=== PATIENT | female | born 1950 | race Caucasian/White ===

== ENCOUNTER 2017-08-30 10:17 | Day surgery (SDC) | payer MEDICARE ==
[2017-08-26 08:57] VITALS: BMI 30.2
[~2017-08-30 10:17] MED LIST: LACTATED RINGERS 1,000 ML IV SCH; LIDOCAINE 1% 20 ML VIAL (10MG/ML) FOR IV START INTRADERMA PRN; MIDAZOLAM 2 MG/2 ML VIAL IV PRN
[2017-08-30 10:47] VITALS: RESP 16; TEMP 97.3
[2017-08-30] MEDS ORDERED: fentaNYL (PF) 50 MCG/ML 2 ML AMP ONE (11:10)
[2017-08-30] MEDS ORDERED: PROPOFOL 10 MG/ML 20 ML VIAL IV ONE (11:10)
--- NOTE | 2017-08-30 11:16 | P.GSHP ---
History of Present Illness H&P Date: 08/30/17 Chief Complaint: GI bleed, screening colonoscopy This is a 67-year-old female who presents today for colonoscopy. Patient's had a recent hospital admission for GI bleed. She had some form of colitis. Patient states her bleeding is stopped. She has no abdominal pain. Past Medical History Past Medical History: Asthma, Deep Vein Thrombosis (DVT), GI Bleed, Hypertension , Thyroid Disorder Additional Past Medical History / Comment(s): hospitalized 06/2017 with colitis History of Any Multi-Drug Resistant Organisms: None Reported Past Surgical History: Back Surgery, Section, Orthopedic Surgery, Tonsillectomy Additional Past Surgical History / Comment(s): chiari sx, tonsils x2, shoulder, back x2, knee, left foot Past Anesthesia/Blood Transfusion Reactions: No Reported Reaction Smoking Status: Never smoker - Past Family History Mother Family Medical History: No Reported History Medications and Allergies Home Medications Medication Instructions Recorded Confirmed Type Albuterol Inhaler [Ventolin Hfa 1 - 2 puff INHALATION RT-Q6H PRN 08/26/17 History Inhaler] Aspirin [Adult Low Dose Aspirin EC] 162 mg PO DAILY 08/26/17 08/26/17 History Cholecalciferol [Vitamin D3] 1,000 unit PO DAILY 08/26/17 08/26/17 History Cyanocobalamin (Vitamin B-12) 1,000 mcg PO DAILY 08/26/17 08/26/17 History [Vitamin B-12] Levothyroxine Sodium [Synthroid] 25 mcg PO QAM 08/26/17 08/26/17 History Losartan/Hydrochlorothiazide 1 each PO QAM 08/26/17 08/26/17 History [Losartan-Hctz 100-12.5 mg Tab] Mometasone/Formoterol [Dulera 200 2 puff INHALATION QAM 08/26/17 08/26/17 History Mcg/5 Mcg Inhaler] Multivitamins, Thera [Multivitamin 1 tab PO DAILY 08/26/17 08/26/17 History (formulary)] Vits A,C,E/Lutein/Minerals 1 each PO DAILY 08/26/17 08/26/17 History [Ocuvite with Lutein Tablet] Allergies Allergy/AdvReac Type Severity Reaction Status Date / Time latex Allergy Rash/Hives Verified 08/26/17 08:45 allergy shot Allergy Rash/Hives Uncoded 08/26/17 08:45 Surgical - Exam Vital Signs Temp Pulse Resp BP Pulse Ox 97.3 F L 63 16 177/80 98 08/30/17 10:46 08/30/17 10:46 08/30/17 10:46 08/30/17 10:46 08/30/17 10:46 - General well developed - Eyes PERRL - ENT normal pinna - Neck no masses - Respiratory normal expansion - Cardiovascular Rhythm: regular - Abdomen Abdomen: soft, non tender Assessment and Plan Assessment: GI bleed. We'll perform colonoscopy.
--- NOTE | 2017-08-30 11:25 | P.OP ---
Date of Procedure: 08/30/17 Preoperative Diagnosis: Diverticulitis, screening colonoscopy Postoperative Diagnosis: Diverticulosis Procedure(s) Performed: Colonoscopy Anesthesia: MAC Surgeon: Ming Newell Pathology: none sent Condition: stable Disposition: PACU Description of Procedure: The patient's placed on the endoscopy table in the lateral position. She received IV sedation. Digital rectal exam was performed which revealed no abnormalities. Flexible colonoscope was then placed the patient's anus and passed throughout the entire colon. The ileocecal valve was visualized. The cecum, ascending and transverse colon appeared normal. In the descending and sigmoid colon there is moderate diverticular changes. There is no evidence of diverticulitis. The scope was then brought back into the rectum and this appeared normal. Scope was withdrawn for patient.
[2017-08-30 11:55] VITALS: BP 144/64; PULSE 60
== END 2017-08-30 12:10 | disposition home or self-care (01) ==
LOC: ORWHC2ENDO 10:17
PROVIDERS: ATTEND Surgery
DX: Z12.11 Encounter for screening for malignant neoplasm of colon (principal); K57.30 Diverticulosis of large intestine without perforation or abscess without bleeding; J45.909 Unspecified asthma, uncomplicated; I10 Essential (primary) hypertension; E07.9 Disorder of thyroid, unspecified; Z79.82 Long term (current) use of aspirin; Z79.899 Other long term (current) drug therapy; Z88.8 Allergy status to other drugs, medicaments and biological substances; Z86.718 Personal history of other venous thrombosis and embolism; Z91.040 Latex allergy status; E78.5 Hyperlipidemia, unspecified; Z87.19 Personal history of other diseases of the digestive system
CPT/HCPCS: J3010; J2704; G0121

== ENCOUNTER → 2017-10-29 | Outpatient (CLI) | payer MEDICARE ==
--- NOTE | 2017-10-29 11:03 | MM ---
Reason for exam: screening (asymptomatic). Last mammogram was performed 8 years and 9 months ago. History: Patient is postmenopausal. Family history of breast cancer in maternal aunt. Benign excisional biopsy of the left breast, 1993. Physical Findings: A clinical breast exam by your physician is recommended on an annual basis and results should be correlated with mammographic findings. MG Screening Mammo w CAD Bilateral CC and MLO view(s) were taken. Prior study comparison: January 25, 2009, bilateral digital screening mammogram. March 01, 2003, mammogram, performed at [facility], [place]. There are scattered fibroglandular densities. There is no discrete abnormality. No significant changes when compared with prior studies. ASSESSMENT: Negative, BI-RAD 1 RECOMMENDATION: Routine screening mammogram of both breasts in 1 year.
== END | disposition home or self-care (01) ==
LOC: RADMAMWWP 07:11
PROVIDERS: ATTEND Family Medicine
DX: Z12.31 Encounter for screening mammogram for malignant neoplasm of breast (principal)
CPT/HCPCS: 77067

== ENCOUNTER → 2017-12-09 | Outpatient (CLI) | payer MEDICARE ==
[2017-12-10 04:31] LABS: Gliadin AB IgA, Unit <0.2 U/mL
== END ==
LOC: LABWHC1 16:09
PROVIDERS: ATTEND Internal Medicine Gastroenterology
DX: K58.9 Irritable bowel syndrome, unspecified (principal)
CPT/HCPCS: 36415; 83516

== ENCOUNTER → 2018-01-14 | Outpatient (CLI) | payer MEDICARE ==
--- NOTE | 2018-01-16 14:12 | US ---
EXAMINATION TYPE: US carotid duplex BILAT DATE OF EXAM: 01/14/2018 COMPARISON: NONE CLINICAL HISTORY: I10 Hypertension, H53.9 vision changes. EXAM MEASUREMENTS: RIGHT: Peak Systolic Velocity (PSV) cm/sec ----- Right CCA: 72.1 ----- Right ICA: 241.4 ----- Right ECA: 115.7 ICA/CCA ratio: 3.3 RIGHT: End Diastole cm/sec ----- Right CCA: 13.8 ----- Right ICA: 57.4 ----- Right ECA: 0.0 LEFT: Peak Systolic Velocity (PSV) cm/sec ----- Left CCA: 74.3 ----- Left ICA: 139.3 ----- Left ECA: 130.2 ICA/CCA ratio: 1.9 LEFT: End Diastole cm/sec ----- Left CCA: 19.3 ----- Left ICA: 39.7 ----- Left ECA: 26.8 VERTEBRALS (direction of flow): Right Vertebral: Antegrade Left Vertebral: Antegrade Rhythm: Normal extensive shadowing plaque bilaterally. Elevated ICA velocities in right ICA causing elevated ratio. Grayscale, color Doppler, spectral Doppler imaging performed of the carotid arteries. Waveform analys is shows hemodynamic significant stenosis of the proximal internal carotid artery on the right greate r than left. IMPRESSION: Hemodynamic significant stenosis of the proximal internal carotid artery on the right gr eater than left corresponding to [id number]% diameter reduction by Doppler criteria, an indir ect measurement of carotid stenosis, consider carotid CTA Criteria for Assigning % of Stenosis / Diameter reduction (Estimation based on the indirect measurements of the internal carotid artery velocities (ICA PSV). 1. Normal (no stenosis)=ICA PSV < 125 cm/s: ratio < 2.0: ICA EDV<40 cm/s. 2. Less than 50% stenosis=ICA PSV < 125 cm/s: ratio < 2.0: ICA EDV<40 cm/s. 3. 50 to 69% stenosis=ICA PSV of 125 to 230 cm/s: ration 2.0 ? 4.0: ICA EDV 40-100 cm/s. 4. Greater than 70% stenosis to near occlusion= ICA PSV > 230 cm/s: ratio > 4.0: ICA EDV > 100 cm/s. 5. Near occlusion= ICA PSV velocities may be low or undetectable: variable ratio and ICA EDV. 6. Total occlusion=unable to detect flow.
== END | disposition home or self-care (01) ==
LOC: RADUSWWP 16:51
PROVIDERS: ATTEND Family Medicine
DX: I65.23 Occlusion and stenosis of bilateral carotid arteries (principal); I10 Essential (primary) hypertension
CPT/HCPCS: 93880

== ENCOUNTER → 2018-08-26 | Outpatient (CLI) | payer MEDICARE ==
--- NOTE | 2018-08-26 11:47 | P.STRESS ---
- Stress Test Note Stress Test Results/Findings: Exam Performed: stress echo exercise with con Exam Date: 08/26/18 Reason for Exam: CHEST PAIN Height: 5 ft 1 in Weight: 74.843 kg Protocol: IRASEMA Stage: 3 Duration of Exercise: 7:00 Resting Heart Rate: 70 Resting Blood Pressure: 131/40 Maximum Achieved Heart Rate: 129 Maximum Achieved Blood Pressure: 194/38 85% PMHR: 128 100% PMHR: 151 METS: 8.5 Technologist Comment: Stress Test Results/Findings: This is a 68-year-old female with history of hypertension being evaluated for symptoms of chest pain. Stress data: Baseline EKG showed sinus rhythm with normal MN interval and QRS duration with occasional PVCs. Patient walked on the Irasema protocol for about 7 minutes achieving a maximal rate of 130 with a blood pressure 194/38. EKGs taken during and after the exercise showed about [address] depression in the inferolateral leads which appears to be horizontal. Patient also had one bout of SVT for which she converted back to sinus rhythm spontaneously. Patient complained of shortness of breath but no chest pain. Echo data: Baseline echo images show normal wall motion and thickening. Exercise echo images showed augmentation of wall motion and thickening in all the segments. Final impression: #1. Positive stress test, based on the EKG changes. However, the changes could be related to hypertensive response to the exercise. #2. Brief episode of SVT from which patient converted back to sinus rhythm spontaneously #3 occasional PVCs. #4. Negative stress echo.
--- NOTE | 2018-08-29 14:31 | ECHOS ---
Stress Test Results/Findings: Exam Performed: stress echo exercise with con Exam Date: 08/26/18 Reason for Exam: CHEST PAIN Height: 5 ft 1 in Weight: 74.843 kg Protocol: IRASEMA Stage: 3 Duration of Exercise: 7:00 Resting Heart Rate: 70 Resting Blood Pressure: 131/40 Maximum Achieved Heart Rate: 129 Maximum Achieved Blood Pressure: 194/38 85% PMHR: 128 100% PMHR: 151 METS: 8.5 Technologist Comment: Stress Test Results/Findings: This is a 68-year-old female with history of hypertension being evaluated for symptoms of chest pain. Stress data: Baseline EKG showed sinus rhythm with normal CT interval and QRS duration with occasional PVCs. Patient walked on the Irasema protocol for about 7 minutes achieving a maximal rate of 130 with a blood pressure 194/38. EKGs taken during and after the exercise showed about [address] depression in the inferolateral leads which appears to be horizontal. Patient also had one bout of SVT for which she converted back to sinus rhythm spontaneously. Patient complained of shortness of breath but no chest pain. Echo data: Baseline echo images show normal wall motion and thickening. Exercise echo images showed augmentation of wall motion and thickening in all the segments. Final impression: #1. Positive stress test, based on the EKG changes. However, the changes could be related to hypertensive response to the exercise. #2. Brief episode of SVT from which patient converted back to sinus rhythm spontaneously #3 occasional PVCs. #4. Negative stress echo. JOSELYN
== END | disposition home or self-care (01) ==
LOC: RADNMMAIN 09:01
PROVIDERS: ATTEND Family Medicine
DX: R94.39 Abnormal result of other cardiovascular function study (principal); R07.89 Other chest pain
CPT/HCPCS: C8930; Q9950; 93351

== ENCOUNTER → 2018-10-12 | Outpatient (CLI) | payer MEDICARE ==
--- NOTE | 2018-10-13 08:42 | CT ---
EXAMINATION TYPE: CT angio neck DATE OF EXAM: None COMPARISON: 04/11/2013 HISTORY: dizziness CT DLP: 638.9 mGycm CONTRAST: CTA cervical carotids is performed and with IV Contrast, patient injected with 50cc mL of Isovue 370. Contrast CTA of the cervical carotids was performed 3-D reconstruction imaging obtained at a separate workstation. Right carotid system: Mild plaque is seen of the right common carotid artery. There is mild to moder ate plaque also noted at the carotid bulb. Estimated diameter reduction is approximately 60%. ECA is patent. Right vertebral artery appears unremarkable. Left carotid system: Mild plaque is seen of the left common carotid artery. There is moderate calcif ied plaque also noted at the carotid bulb. Estimated diameter reduction is less than 50%. ECA is p atent. Left vertebral artery appears unremarkable. IMPRESSION: 1. Estimated diameter reduction Right ICA proximally 60% 2. Estimated diameter reduction Left ICA less than 50%
== END | disposition home or self-care (01) ==
LOC: RADCTMAIN 16:32
PROVIDERS: ATTEND Internal Medicine Interventional Cardiology
DX: I65.23 Occlusion and stenosis of bilateral carotid arteries (principal); I10 Essential (primary) hypertension; E78.1 Pure hyperglyceridemia; R06.02 Shortness of breath
CPT/HCPCS: 82565; 84520; 70498; 36415; Q9967

== ENCOUNTER → 2019-06-08 | Outpatient (CLI) | payer MEDICARE ==
--- NOTE | 2019-06-08 11:53 | US ---
EXAMINATION TYPE: US venous doppler duplex LE RT DATE OF EXAM: 06/08/2019 11:47 AM COMPARISON: Prior right lower extremity venous ultrasound January 11, 2015 CLINICAL HISTORY: R60.0 Localized edema. Pain. No swelling. No redness. On baby aspirin. SIDE PERFORMED: Right TECHNIQUE: The lower extremity deep venous system is examined utilizing real time linear array sonog dawson with graded compression, doppler sonography and color-flow sonography. VESSELS IMAGED: External Iliac Vein (EIV) Common Femoral Vein Deep Femoral Vein Greater Saphenous Vein * Femoral Vein Popliteal Vein Small Saphenous Vein * Proximal Calf Veins (* superficial vessels) Right Leg: Negative for DVT Grayscale, color doppler, spectral doppler imaging performed of the deep veins of the right lower ext remity. There is normal flow, compressibility, vascular waveforms. IMPRESSION: No ultrasound evidence for acute DVT in the right lower extremity.
== END | disposition home or self-care (01) ==
LOC: RADUSWWP 11:04
PROVIDERS: ATTEND Family Medicine
DX: R60.0 Localized edema (principal)

== ENCOUNTER → 2019-09-27 | Outpatient (CLI) | payer MEDICARE ==
--- NOTE | 2019-09-27 10:03 | US ---
EXAMINATION TYPE: US venous doppler duplex LE RT DATE OF EXAM: 09/27/2019 9:52 AM COMPARISON: US CLINICAL HISTORY: I80.9 Phlebitis and thrombophlebitis of unspecifie. Pain right medial calf SIDE PERFORMED: Right TECHNIQUE: The lower extremity deep venous system is examined utilizing real time linear array sonog dawson with graded compression, doppler sonography and color-flow sonography. VESSELS IMAGED: External Iliac Vein (EIV) Common Femoral Vein Deep Femoral Vein Greater Saphenous Vein * Femoral Vein Popliteal Vein Small Saphenous Vein * Proximal Calf Veins (* superficial vessels) Right Leg: Negative for DVT, right medial calf scanned in area of pt's pain, no abnormality visualiz ed Results called to Kathie at Dr's office at time of exam IMPRESSION: Negative for DVT
[2019-09-27 11:15] LABS: Basophils # (A) 0.1 k/uL (0-0.2); Basophils % (A) 1 %; Eosinophils # (A) 0.6 k/uL (0-0.7); Eosinophils % (A) 8 %; HCT 44.9 % (34.0-46.0); HGB 14.5 gm/dL (11.4-16.0); Lymphocytes # (A) 1.9 k/uL (1.0-4.8); Lymphocytes % (A) 26 %; MCHC 32.4 g/dL (31.0-37.0); MCV 92.6 fL (80.0-100.0); Mean Platelet Volume 8.2; Monocytes # (A) 0.4 k/uL (0-1.0); Monocytes % (A) 5 %; Neutrophils # (A) 4.2 k/uL (1.3-7.7); Neutrophils % (A) 58 %; Platelet Count 212 k/uL (150-450); RBC 4.85 m/uL (3.80-5.40); RDW 12.7 % (11.5-15.5); WBC 7.2 k/uL (3.8-10.6)
[2019-09-27 11:25] LABS: ALT 16 U/L (4-34); AST 28 U/L (14-36); African American GFR (CKD) >90 (>60 ml/min/1.73 sqM); Albumin 3.8 g/dL (3.5-5.0); Alkaline Phosphatase 40 U/L (38-126); Anion Gap 7 mmol/L; Blood Urea Nitrogen 15 mg/dL (7-17); Calcium 9.2 mg/dL (8.4-10.2); Carbon Dioxide 26 mmol/L (22-30); Chloride 108 mmol/L (98-107); Glucose 114 mg/dL (74-99); Non-African American GFR(CKD) 86 (>60 ml/min/1.73 sqM); Potassium 4.4 mmol/L (3.5-5.1); Sodium 141 mmol/L (137-145); Total Bilirubin 0.5 mg/dL (0.2-1.3); Total Protein 6.5 g/dL (6.3-8.2)
== END | disposition home or self-care (01) ==
LOC: RADUSWWP 09:10
PROVIDERS: ATTEND Family Medicine
DX: I80.9 Phlebitis and thrombophlebitis of unspecified site (principal)
CPT/HCPCS: 80053; 85025

== ENCOUNTER 2020-02-23 16:29 | Emergency (ER) | payer MEDICARE ==
[2020-02-23 16:37] VITALS: BP 159/75; PULSE 70; RESP 20; TEMP 98.5
[2020-02-23] MEDS ORDERED: HYDROcodone/APAP 5-325MG 1 EACH TAB PO STA ×2 (16:39→16:51)
--- NOTE | 2020-02-23 16:58 | ED ---
Lower Extremity Injury HPI - General Chief Complaint: Extremity Injury, Lower Stated Complaint: DVT Time Seen by Provider: 02/23/20 16:39 Source: patient Mode of arrival: wheelchair Limitations: no limitations - History of Present Illness Initial Comments: Patient presents with complaint of left leg DVT. She had a broken foot a couple months ago. She noticed increased swelling in her left leg. Her orthopedic company ordered a duplex of the leg. If found her to have a DVT. Patient has no chest pain or shortness of breath. She has no palpitations. She has no weakness. She has no paresthesias. She has no light is. She has no dizziness. She has no trouble walking. - Related Data Home Medications Medication Instructions Recorded Confirmed Albuterol Inhaler (Mhu) [Ventolin 1 - 2 puff INHALATION RT-Q6H PRN 08/26/17 08/26/17 Hfa Inhaler] Aspirin [Adult Low Dose Aspirin EC] 162 mg PO DAILY 08/26/17 08/26/17 Cholecalciferol [Vitamin D3] 1,000 unit PO DAILY 08/26/17 08/26/17 Cyanocobalamin (Vitamin B-12) 1,000 mcg PO DAILY 08/26/17 08/26/17 [Vitamin B-12] Levothyroxine Sodium [Synthroid] 25 mcg PO QAM 08/26/17 08/26/17 Losartan/Hydrochlorothiazide 1 each PO QAM 08/26/17 08/26/17 [Losartan-Hctz 100-12.5 mg Tab] Mometasone/Formoterol [Dulera 200 2 puff INHALATION QAM 08/26/17 08/26/17 Mcg/5 Mcg Inhaler] Multivitamins, Thera [Multivitamin 1 tab PO DAILY 08/26/17 08/26/17 (formulary)] Vits A,C,E/Lutein/Minerals 1 each PO DAILY 08/26/17 08/26/17 [Ocuvite with Lutein Tablet] Previous Rx's Medication Instructions Recorded Apixaban [Eliquis Starter Pack 5 mg PO DIRECTED 30 Days #1 pack 02/23/20 (for VTE)] Allergies Allergy/AdvReac Type Severity Reaction Status Date / Time latex Allergy Rash/Hives Verified 02/23/20 16:37 allergy shot Allergy Rash/Hives Uncoded 02/23/20 16:37 Review of Systems ROS Statement: Those systems with pertinent positive or pertinent negative responses have been documented in the HPI. ROS Other: All systems not noted in ROS Statement are negative. Past Medical History Past Medical History: Asthma, Deep Vein Thrombosis (DVT), GI Bleed, Hyp ertension, Thyroid Disorder Additional Past Medical History / Comment(s): hospitalized 06/2017 with colitis History of Any Multi-Drug Resistant Organisms: None Reported Past Surgical History: Back Surgery, Section, Orthopedic Surgery, Tonsillectomy Additional Past Surgical History / Comment(s): chiari sx, tonsils x2, shoulder, back x2, knee, left foot Past Anesthesia/Blood Transfusion Reactions: No Reported Reaction Past Psychological History: No Psychological Hx Reported Smoking Status: Never smoker Past Alcohol Use History: Occasional Past Drug Use History: None Reported - Past Family History Mother Family Medical History: No Reported History General Exam Limitations: no limitations General appearance: alert, in no apparent distress Head exam: Present: atraumatic Neck exam: Present: normal inspection Respiratory exam: Absent: accessory muscle use Cardiovascular Exam: Present: other (Normal peripheral perfusion) GI/Abdominal exam: Absent: distended Extremities exam: Present: calf tenderness (Swelling in the left leg), other Neurological exam: Present: alert, oriented X3 Psychiatric exam: Present: normal affect Skin exam: Present: warm, dry. Absent: rash Course Vital Signs 02/23/20 16:34 Temperature 98.5 F Pulse Rate 70 Respiratory 20 Rate Blood Pressure 159/75 O2 Sat by Pulse 99 Oximetry Medical Decision Making - Medical Decision Making Patient sent to the emerge department for unilateral DVT. She will be started on liquids. She will follow-up with her doctor within 3 days for reevaluation. I instructed her to return to the emergency department if she develops chest pain or palpitations or shortness of breath or any other concerning symptoms. Disposition Clinical Impression: DVT (deep venous thrombosis) Disposition: HOME SELF-CARE Condition: Good Instructions (If sedation given, give patient instructions): Deep Vein Thrombosis (ED) Prescriptions: Apixaban [Eliquis Starter Pack (for VTE)] 5 mg PO DIRECTED 30 Days #1 pack Is patient prescribed a controlled substance at d/c from ED?: No If prescribed controlled substance>3 days was MAPS reviewed?: No Referrals: Rory Brand MD [Primary Care Provider] - 1-2 days Time of Disposition: 16:55
[2020-02-23] MEDS ORDERED: APIXABAN 5 MG TAB PO SCH (21:00)
== END 2020-02-23 17:24 | disposition home or self-care (01) ==
LOC: EC 16:29
DX: I82.402 Acute embolism and thrombosis of unspecified deep veins of left lower extremity (principal); J45.909 Unspecified asthma, uncomplicated; I10 Essential (primary) hypertension; E07.9 Disorder of thyroid, unspecified; Z79.51 Long term (current) use of inhaled steroids; Z79.82 Long term (current) use of aspirin; Z79.890 Hormone replacement therapy; Z79.899 Other long term (current) drug therapy; Z91.040 Latex allergy status; Z88.8 Allergy status to other drugs, medicaments and biological substances
CPT/HCPCS: 99283

== ENCOUNTER → 2020-02-23 | Outpatient (CLI) | payer MEDICARE ==
--- NOTE | 2020-02-25 09:48 | US ---
EXAMINATION TYPE: US venous doppler duplex LE LT DATE OF EXAM: 02/23/2020 4:18 PM COMPARISON: NONE CLINICAL HISTORY: I80.9 Phlebitis, Pain in L foot M79.672. pain left leg, edema left leg SIDE PERFORMED: left TECHNIQUE: The lower extremity deep venous system is examined utilizing real time linear array sonog dawson with graded compression, doppler sonography and color-flow sonography. VESSELS IMAGED: Common Femoral Vein Deep Femoral Vein Greater Saphenous Vein * Femoral Vein Popliteal Vein Small Saphenous Vein * Proximal Calf Veins (* superficial vessels) There is low-level internal echoes throughout the distribution of the left superficial femoral vein e xtending to the popliteal vein, there is lack of compressibility and color flow. Left Leg: positive for DVT left superficial femoral vein extending into popliteal vein IMPRESSION: Deep venous thrombosis as described. Preliminary report called to the referring clinician 's office at the time of performance of the exam.
== END | disposition home or self-care (01) ==
LOC: RADUSWWP 15:50
PROVIDERS: ATTEND Orthopaedic Surgery Sports Medicine
DX: M79.672 Pain in left foot (principal); I82.402 Acute embolism and thrombosis of unspecified deep veins of left lower extremity; S92.355D Nondisplaced fracture of fifth metatarsal bone, left foot, subsequent encounter for fracture with routine healing

== ENCOUNTER → 2020-04-22 | Outpatient (CLI) | payer MEDICARE ==
[2020-04-22 14:59] LABS: Basophils # (A) 0.07 X 10*3/uL (0.00-0.10); Basophils % (A) 1.1 %; Eosinophils # (A) 0.41 X 10*3/uL (0.04-0.35); Eosinophils % (A) 6.6 %; HCT 39.6 % (37.2-46.3); HGB 13.4 g/dL (12.0-15.0); Lymphocytes # (A) 1.56 X 10*3/uL (0.90-5.00); Lymphocytes % (A) 25.2 %; MCH 29.7 pg (27.0-32.0); MCHC 33.8 g/dL (32.0-37.0); MCV 87.8 fL (80.0-97.0); Mean Platelet Volume 10.7 fL (9.5-12.2); Monocytes # (A) 0.42 X 10*3/uL (0.20-1.00); Monocytes % (A) 6.8 %; Neutrophils # (A) 3.69 X 10*3/uL (1.80-7.70); Neutrophils % (A) 59.8 %; Platelet Count 241 X 10*3/uL (140-440); RBC 4.51 X 10*6/uL (4.10-5.20); RDW 12.1 % (11.5-14.5); WBC 6.18 X 10*3/uL (4.50-10.00)
[2020-04-22 16:01] LABS: Albumin 4.2 g/dL (3.80-4.90); Albumin/Globulin Ratio 2.33 (1.60-3.17); Anion Gap 9.4 mmol/L (4.00-12.00); Calcium 9.8 mg/dL (8.7-10.3); Carbon Dioxide 25.6 mmol/L (21.6-31.8); Chol/HDL Ratio 4.16; Globulin 1.8 g/dL (1.6-3.3); LDL Cholesterol,Calculated 121.2 mg/dL (0.0-131.0); Non-African American GFR(CKD) 92.4 (60.0-200.0); Total Bilirubin 0.8 mg/dL (0.3-1.2); VLDL Calculation 33.8 mg/dL (5.00-40.00)
[2020-04-22 16:10] LABS: T4, Free (Free Thyroxine) 1.2 ng/dL (0.80-1.80)
== END | disposition home or self-care (01) ==
LOC: LABWHC1 08:10
PROVIDERS: ATTEND Family Medicine
DX: E03.9 Hypothyroidism, unspecified (principal); I10 Essential (primary) hypertension; M81.0 Age-related osteoporosis without current pathological fracture
CPT/HCPCS: 36415; 80053; 80061; 82306; 84439; 84443; 85025

== ENCOUNTER → 2020-07-15 | Outpatient (CLI) | payer MEDICARE | END | disposition home or self-care (01) | LOC: RADMRIMAIN 18:30 | PROVIDERS: ATTEND Podiatrist | DX: Z53.9 Procedure and treatment not carried out, unspecified reason (principal) ==

== ENCOUNTER → 2020-08-22 | Outpatient (CLI) | payer MEDICARE ==
[~2020-08-22] MED LIST changes: -LACTATED RINGERS 1,000 ML IV SCH; -LIDOCAINE 1% 20 ML VIAL (10MG/ML) FOR IV START INTRADERMA PRN; -MIDAZOLAM 2 MG/2 ML VIAL IV PRN; +SODIUM CHLORIDE 0.9% 500 ML 500 ML in EMPTY BAG 1 BAG IV PRN; +ZOLEDRONIC ACID 5 MG in SODIUM CHLORIDE 0.9% 100 ML IV NR
[2020-08-22 07:48] VITALS: BP 182/73; PULSE 73; RESP 16; TEMP 98.2
== END ==
LOC: PROCWHC3 07:40
PROVIDERS: ATTEND Family Medicine
DX: M81.0 Age-related osteoporosis without current pathological fracture (principal); Z91.040 Latex allergy status
CPT/HCPCS: 96365; J3489

== ENCOUNTER → 2021-01-13 | Outpatient (CLI) | payer MEDICARE ==
--- NOTE | 2021-01-13 19:43 | XR ---
EXAMINATION TYPE: XR thoracic spine complete DATE OF EXAM: 01/13/2021 CLINICAL HISTORY: Left-sided back and rib pain. TECHNIQUE: Frontal, lateral, and swimmer's view of thoracic spine are obtained. COMPARISON: None. FINDINGS: Thoracic spine show levoconvex scoliotic curvature centered mid thoracic spine. Osseous str uctures are demineralized. Vertebral body heights are preserved. Visualized ribs are intact bilateral ly.. IMPRESSION: As above.
== END | disposition home or self-care (01) ==
LOC: RADXRMAIN 17:23
PROVIDERS: ATTEND Family Medicine
DX: M41.84 Other forms of scoliosis, thoracic region (principal)
CPT/HCPCS: 72072

== ENCOUNTER → 2021-01-29 | Outpatient (CLI) | payer MEDICARE ==
[2021-01-29 17:05] LABS: African American GFR (CKD) 85.8 (60.0-200.0); Albumin 4.1 g/dL (3.8-4.9); Albumin/Globulin Ratio 1.97 (1.60-3.17); Anion Gap 12.1 mmol/L (10.00-18.00); BUN/Creat Ratio 12.15 Ratio (12.00-20.00); Blood Urea Nitrogen 9.7 mg/dL (9.0-27.0); Calcium 9.5 mg/dL (8.7-10.3); Globulin 2.1 g/dL (1.6-3.3); Non-African American GFR(CKD) 74.1 (60.0-200.0); Potassium 4.1 mmol/L (3.5-5.5); T4, Free (Free Thyroxine) 1.08 ng/dL (0.800-1.800); Total Bilirubin 0.4 mg/dL (0.30-1.20); Total Protein 6.2 g/dL (6.2-8.2)
== END | disposition home or self-care (01) ==
LOC: LABWHC1 08:33
PROVIDERS: ATTEND Nurse Practitioner Adult Health
DX: I10 Essential (primary) hypertension (principal); E03.9 Hypothyroidism, unspecified
CPT/HCPCS: 36415; 80053; 84439; 84443; 84481

== ENCOUNTER → 2021-04-11 | Outpatient (CLI) | payer MEDICARE ==
[2021-04-11 09:45] LABS: African American GFR (CKD) >90 (>60 ml/min/1.73 sqM); Blood Urea Nitrogen 15 mg/dL (7-17); Non-African American GFR(CKD) 80 (>60 ml/min/1.73 sqM)
--- NOTE | 2021-04-11 10:30 | CT ---
EXAMINATION TYPE: CT abdomen pelvis w con DATE OF EXAM: 04/11/2021 COMPARISON: None HISTORY: pain CT DLP: 710.3 mGycm CONTRAST: CT scan of the abdomen and pelvis is performed with Oral Contrast and with IV Contrast, patient injec smiley with 100 mL of Isovue 300. FINDINGS: LUNG BASES-: No visible nodule. No infiltrate. Small hiatal hernia noted. LIVER/GB: No calcified gallstones. No space occupying hepatic lesion. Biliary tree is of normal ca liber. PANCREAS: No inflammation. No distinct mass. SPLEEN: No splenic enlargement. No lesion seen. ADRENALS: No nodule. No thickening. KIDNEYS/BLADDER: No hydronephrosis. No nephrolithiasis. No distinct renal mass. Urinary bladder g rossly unremarkable. BOWEL: Normal appendix. Normal bowel caliber. No inflammation. GENITAL ORGANS: Hysterectomy changes noted. LYMPH NODES: No greater than 1cm abdominal or pelvic lymph nodes are appreciated. AORTA: No significant abnormality. OSSEOUS STRUCTURES: No significant abnormality is seen. OTHER: No significant additional abnormality is seen. IMPRESSION: 1. No significant abnormality to account for the patient's symptoms.
== END | disposition home or self-care (01) ==
LOC: RADCTMAIN 08:38
PROVIDERS: ATTEND Student in an Organized Health Care Education/Training Program
DX: R10.9 Unspecified abdominal pain (principal)
CPT/HCPCS: 82565; 84520; 74177; 36415; Q9967

== ENCOUNTER → 2021-05-23 | Outpatient (CLI) | payer MEDICARE ==
[2021-05-23 13:33] LABS: Partial Thromboplastin Time 23.9 sec (22.0-30.0); Prothrombin Time 10.9 sec (9.0-12.0)
[2021-05-23 18:33] LABS: Basophils # (A) 0.08 X 10*3/uL (0.00-0.10); Basophils % (A) 1.1 %; Eosinophils # (A) 0.35 X 10*3/uL (0.04-0.35); Eosinophils % (A) 4.7 %; HCT 41.3 % (37.2-46.3); HGB 13.5 g/dL (12.0-15.0); Immature Grans, Automated 0.8 %; Lymphocytes # (A) 1.97 X 10*3/uL (0.90-5.00); Lymphocytes % (A) 26.4 %; MCH 30.3 pg (27.0-32.0); MCHC 32.7 g/dL (32.0-37.0); MCV 92.8 fL (80.0-97.0); Mean Platelet Volume 10.9 fL (9.5-12.2); Monocytes # (A) 0.56 X 10*3/uL (0.20-1.00); Monocytes % (A) 7.5 %; NRBC Per 100 WBC 0 /100 WBCS (0.0-0.0); Neutrophils # (A) 4.44 X 10*3/uL (1.80-7.70); Neutrophils % (A) 59.5 %; Platelet Count 232 X 10*3/uL (140-440); RBC 4.45 X 10*6/uL (4.10-5.20); RDW 13.2 % (11.5-14.5); WBC 7.46 X 10*3/uL (4.50-10.00)
[2021-05-23 20:35] LABS: African American GFR (CKD) 93.4 (60.0-200.0); Anion Gap 12.6 mmol/L (10.00-18.00); BUN/Creat Ratio 16.73 Ratio (12.00-20.00); Blood Urea Nitrogen 12.5 mg/dL (9.0-27.0); Calcium 9.5 mg/dL (8.7-10.3); Carbon Dioxide 21.8 mmol/L (20.0-27.5); Non-African American GFR(CKD) 80.6 (60.0-200.0); Potassium 3.9 mmol/L (3.5-5.5)
== END | disposition home or self-care (01) ==
LOC: LABWHC1 11:10
PROVIDERS: ATTEND Internal Medicine Cardiovascular Disease
DX: Z01.818 Encounter for other preprocedural examination (principal); I87.2 Venous insufficiency (chronic) (peripheral)
CPT/HCPCS: 36415; 80048; 85025; 85610; 85730

== ENCOUNTER → 2022-05-26 | Outpatient (CLI) | payer MEDICARE ==
--- NOTE | 2022-05-26 14:42 | US ---
EXAMINATION TYPE: US venous doppler duplex LE RT DATE OF EXAM: 05/26/2022 2:29 PM COMPARISON: US September 27, 2019 CLINICAL INDICATION: Female, 71 years old with history of I82.40 ACUTE EMBOLISM AND THOMBOS UNSP DEEP VEINS; Pt states right leg pain, h/o DVT right leg, pt currently not on blood thinners SIDE PERFORMED: Right TECHNIQUE: The lower extremity deep venous system is examined utilizing real time linear array sonog dawson with graded compression, doppler sonography and color-flow sonography. VESSELS IMAGED: Common Femoral Vein Deep Femoral Vein Greater Saphenous Vein * Femoral Vein Popliteal Vein Small Saphenous Vein * Proximal Calf Veins (* superficial vessels) Right Leg: Negative for DVT, incidental note- reflux visualized at distal femoral and distal poplite al veins Grayscale, color doppler, spectral doppler imaging performed of the deep veins of the right lower ext remity. There is normal flow, compressibility, vascular waveforms. IMPRESSION: No ultrasound evidence for acute DVT in the right lower extremity. No significant change from prior.
== END | disposition home or self-care (01) ==
LOC: RADUSWWP 13:50
PROVIDERS: ATTEND Internal Medicine Cardiovascular Disease
DX: I82.401 Acute embolism and thrombosis of unspecified deep veins of right lower extremity (principal); I87.2 Venous insufficiency (chronic) (peripheral)

== ENCOUNTER → 2022-06-04 | Outpatient (CLI) | payer MEDICARE ==
--- NOTE | 2022-06-04 09:57 | CT ---
EXAMINATION TYPE: CT angio abdomen pelvis DATE OF EXAM: 06/04/2022 COMPARISON: 03/26/2022 HISTORY: Right sided iliac vein stent. CONTRAST: CTA thoracic and abdominal aorta with 3-D reconstruction is performed without Oral Contrast and witho ut and with IV Contrast, patient injected with 100 mL of Isovue 370. Contrast CTA of the abdominal aorta was performed from the lung base through the base of the pelvis. 3-D reconstruction imaging obtained at a separate workstation. ABDOMINAL AORTA: No evidence for abdominal aortic aneurysm. No dissection. Iliac vessels are symmet elizabet and patent. There is right sided common iliac venous stent and external iliac venous stent which demonstrates delilah e contrast opacification on the delayed images. No definite persistent filling defect is seen. Iliac veins enhance symmetrically. LIVER/GB- No significant abnormality is seen. PANCREAS- No significant abnormality is seen. SPLEEN- No significant abnormality is seen. ADRENALS- No significant abnormality is seen. KIDNEYS/BLADDER- No significant abnormality is seen. BOWEL-small hiatal hernia noted. GENITAL ORGANS: No gross abnormality seen. LYMPH NODES- No greater than 1cm abdominal or pelvic lymph nodes are appreciated. OSSEOUS STRUCTURES-postoperative changes of lower lumbar fusion. OTHER- No significant abnormality is seen. IMPRESSION- 1. No evidence for abdominal aortic aneurysm or dissection. Branch vessels are patent. 2. No evidence for thrombus within the right common iliac and right external iliac venous stent.
== END | disposition home or self-care (01) ==
LOC: RADCTMAIN 08:31
PROVIDERS: ATTEND Internal Medicine Cardiovascular Disease
DX: I87.2 Venous insufficiency (chronic) (peripheral) (principal); Z95.820 Peripheral vascular angioplasty status with implants and grafts
CPT/HCPCS: 74174; Q9967

== ENCOUNTER → 2022-06-23 | Outpatient (CLI) | payer MEDICARE ==
[2022-06-23 08:17] VITALS: BP 168/68; PULSE 74; RESP 16; TEMP 97.8
== END ==
LOC: PROCWHC3 08:00
PROVIDERS: ATTEND Nurse Practitioner Adult Health
DX: M81.0 Age-related osteoporosis without current pathological fracture (principal)
CPT/HCPCS: 96365; J3489

== ENCOUNTER → 2023-01-01 | Outpatient (CLI) | payer MEDICARE ==
[2023-01-01 16:19] LABS: HCT 43.3 % (37.2-46.3); HGB 14.5 g/dL (12.0-15.0); MCH 30.5 pg (27.0-32.0); MCHC 33.5 g/dL (32.0-37.0); MCV 91.2 FL (80.0-97.0); Mean Platelet Volume 10.7 FL (9.5-12.2); NRBC Per 100 WBC 0 X 10*3/uL (0.00-0.01); Platelet Count 235 X 10*3/uL (140-440); RBC 4.75 X 10*6/uL (4.10-5.20); RDW 12.8 % (11.5-14.5); WBC 6.74 X 10*3/uL (4.50-10.00)
== END | disposition home or self-care (01) ==
LOC: LABWHC1 09:02
PROVIDERS: ATTEND Internal Medicine Infectious Disease
DX: R22.41 Localized swelling, mass and lump, right lower limb (principal)
CPT/HCPCS: 36415; 85027; 86140

== ENCOUNTER → 2023-01-06 | Outpatient (CLI) | payer MEDICARE ==
[2023-01-06 16:20] LABS: African American GFR (CKD) >90 (>60 ml/min/1.73 sqM); Blood Urea Nitrogen 15 mg/dL (7-17); Non-African American GFR(CKD) 88 (>60 ml/min/1.73 sqM)
--- NOTE | 2023-01-07 11:02 | CT ---
EXAMINATION TYPE: CT lower leg RT w con DATE OF EXAM: 01/06/2023 COMPARISON: NONE HISTORY: RT calf redness and swelling/ CT DLP: 1311.80 mGycm Automated exposure control for dose reduction was used. CONTRAST: Performed with IV Contrast, patient injected with 100 mL of Isovue 300. FINDINGS: Severe tricompartmental arthropathy with chondrocalcinosis. Correlate for osteoarthritis. Trace amoun t of fluid in the suprapatellar bursa. Soft tissue calcification in the subcutaneous tissues. Atherosclerotic change of the vasculature. There is an area of defect involving the medial femoral condyle suspicious for osteochondritis. Chronic deformity of the distal fibula suggest remote trauma. Calcaneal spurs are noted. There is soft tissue edema posteriorly at the level of the calf and lower leg. No definable localized abscess collection. Muscular atrophy noted. There is fat attenuation within the gastrocnemius muscle which may represent a 3.8 cm intramuscular lipoma. IMPRESSION: 1. Nonspecific posterior soft tissue edema at the level of the calf and lower extremity. Correlate fo r cellulitis. 2. Severe osteoarthritis. 3. Findings suspicious for osteochondritis medial femoral condyle consider MRI follow-up.
== END | disposition home or self-care (01) ==
LOC: RADCTMAIN 15:24
PROVIDERS: ATTEND Internal Medicine Infectious Disease
DX: M19.071 Primary osteoarthritis, right ankle and foot (principal); R22.41 Localized swelling, mass and lump, right lower limb
CPT/HCPCS: 82565; 84520; 73701; 36415; Q9967

== ENCOUNTER → 2023-02-16 | Outpatient (CLI) | payer MEDICARE ==
--- NOTE | 2023-02-16 18:16 | XR ---
EXAMINATION TYPE: XR cervical spine limited DATE OF EXAM: 02/16/2023 5:53 PM CLINICAL INDICATION:Female, 72 years old with history of M79.661; COMPARISON: None TECHNIQUE: The cervical spine was imaged in frontal, lateral, and odontoid. FINDINGS: The osseous structures show normal alignment without evidence of an acute fracture. There are osteoph ytes noted throughout the cervical spine on the anterior and lateral aspects of the vertebral bodies. The intervertebral disk spaces are narrowed at multiple levels Pedicles are intact. Soft tissues ar e within normal limits. The odontoid appears intact. No radiopaque foreign bodies. IMPRESSION: 1. No radiopaque foreign body, No fracture or dislocation. 2. Mild to moderate degenerative disc disease changes of the cervical spine.
== END | disposition home or self-care (01) ==
LOC: RADXRMAIN 17:33
PROVIDERS: ATTEND Orthopaedic Surgery
DX: M50.30 Other cervical disc degeneration, unspecified cervical region (principal); R22.41 Localized swelling, mass and lump, right lower limb; M79.661 Pain in right lower leg
CPT/HCPCS: 72040

== ENCOUNTER → 2023-05-04 | Outpatient (CLI) | payer MEDICARE ==
--- NOTE | 2023-05-04 14:15 | XR ---
EXAMINATION TYPE: XR Hip Complete LT DATE OF EXAM: 05/04/2023 COMPARISON: None HISTORY: Left hip pain TECHNIQUE: 2 view left hip standing position FINDINGS: Femoral head articulates with the acetabulum. No acute fracture or dislocation is evident. Joint space is preserved. Follow up exams can be performed 7-10 days from acute trauma for continued pain. IMPRESSION: 1. Unremarkable 2 view left hip
== END | disposition home or self-care (01) ==
LOC: RADXRMAIN 13:55
PROVIDERS: ATTEND Family Medicine
DX: M25.552 Pain in left hip (principal)
CPT/HCPCS: 73502

== ENCOUNTER → 2023-05-24 | Outpatient (CLI) | payer MEDICARE ==
--- NOTE | 2023-05-25 18:55 | MM ---
Reason for Exam: Screening (asymptomatic). Last mammogram was performed 1 year(s) and 8 month(s) ago. Patient History: Menarche at age 10. First Full-Term at age 20. Hysterectomy at age 39. Postmenopausal. 1993, Benign Excisional Biopsy on the left side. Maternal aunt (leo) had breast cancer, age 75. Risk Values: Jennifer 5 year model risk: 2.1%. NCI Lifetime model risk: 5.0%. Prior Study Comparison: 01/25/2009 Bilateral Screening Mammogram, [facility]. 10/29/2017 Bilateral Screening Mammogram, [facility]. 09/26/2021 Bilateral MG 3D screening mammo w/cad, [facility]. Tissue Density: There are scattered areas of fibroglandular density. Findings: Analyzed By CAD. Chronic nodularity on the right. On the left, there is an unchanged asymmetric density superiorly. There is no suspicious group of microcalcifications or new suspicious mass in either breast. Overall Assessment: Benign, BI-RAD 2 Management: Screening Mammogram of both breasts in 1 year. . Patient should continue monthly self-breast exams. A clinical breast exam by your physician is recommended on an annual basis. This exam should not preclude additional follow-up of suspicious palpable abnormalities. Note on Jennifer scores and lifetime risk: 1. A Jennifer score greater than 3% is considered moderate risk. If this is the case, consider specialist referral to assess eligibility for a risk reducing agent. 2. If overall lifetime risk for the development of breast cancer is 20% or higher, the patient may qualify for future screening with alternating mammogram and breast MRI. Electronically signed and approved by: Marielos Vizcarra M.D. Radiologist
== END | disposition home or self-care (01) ==
LOC: RADMAMWWP 08:58
PROVIDERS: ATTEND Family Medicine
DX: Z12.31 Encounter for screening mammogram for malignant neoplasm of breast (principal); Z78.0 Asymptomatic menopausal state; Z80.3 Family history of malignant neoplasm of breast
CPT/HCPCS: 77063; 77067

== ENCOUNTER 2023-07-12 11:36 | Observation (INO) | payer MEDICARE ==
--- NOTE | 2023-07-12 11:51 | ED ---
Chest Pain HPI - General Chief Complaint: Chest Pain Stated Complaint: Chest pain-sent by PCP Time Seen by Provider: 07/12/23 11:50 Source: patient, RN notes reviewed, old records reviewed Mode of arrival: ambulatory Limitations: no limitations - History of Present Illness Initial Comments: This is a 72-year-old female to the ER today. [facility] for evaluation regards to chest pain persistent chest pain and anterior chest heaviness here in the emergency department. History of heart disease, patient comes in from primary care for evaluation regards to the symptoms. Patient also has had labile blood pressure at home MD Complaint: chest pain, other (Labile blood pressure) -: days(s) (5) Onset: during rest, during exertion Pain Location: substernal, left chest Pain Radiation: LUE Severity: moderate Severity scale (1-10): 4 Quality: tightness, heaviness Consistency: constant Improves With: nothing Worsens With: nothing Anginal Symptoms: dyspnea, sense of impending doom Other Symptoms: palpitations Treatments Prior to Arrival: none - Related Data Home Medications Medication Instructions Recorded Confirmed Albuterol Inhaler [Ventolin Hfa 1 - 2 puff INHALATION RT-Q6H PRN 08/26/17 06/23/22 Inhaler] Aspirin [Adult Low Dose Aspirin EC] 162 mg PO DAILY 08/26/17 06/23/22 Cholecalciferol [Vitamin D3] 1,000 unit PO DAILY 08/26/17 06/23/22 Cyanocobalamin (Vitamin B-12) 1,000 mcg PO DAILY 08/26/17 06/23/22 [Vitamin B-12] Levothyroxine Sodium [Synthroid] 25 mcg PO QAM 08/26/17 06/23/22 Losartan/Hydrochlorothiazide 1 each PO QAM 08/26/17 06/23/22 [Losartan-Hctz 100-12.5 mg Tab] Mometasone/Formoterol [Dulera 200 2 puff INHALATION QAM 08/26/17 06/23/22 Mcg/5 Mcg Inhaler] Multivitamins, Thera [Multivitamin 1 tab PO DAILY 08/26/17 06/23/22 (formulary)] Vits A,C,E/Lutein/Minerals 1 each PO DAILY 08/26/17 06/23/22 [Ocuvite with Lutein Tablet] Allergies Allergy/AdvReac Type Severity Reaction Status Date / Time latex Allergy Rash/Hives Verified 06/23/22 08:13 allergy shot Allergy Rash/Hives Uncoded 06/23/22 08:13 Review of Systems ROS Statement: Those systems with pertinent positive or pertinent negative responses have been documented in the HPI. ROS Other: All systems not noted in ROS Statement are negative. EKG Findings - EKG Comments: EKG Findings:: EKG is sinus 67 [address] 177 QRS 88 QTc 411 - EKG Results: EKG: interpreted by PAUL Past Medical History Past Medical History: Asthma, Deep Vein Thrombosis (DVT), GI Bleed, Hypertension, Thyroid Disorder Additional Past Medical History / Comment(s): hospitalized 06/2017 with colitis History of Any Multi-Drug Resistant Organisms: None Reported Past Surgical History: Back Surgery, Section, Orthopedic Surgery, Tonsillectomy Additional Past Surgical History / Comment(s): chiari sx, tonsils x2, shoulder, back x2, knee, left foot Past Anesthesia/Blood Transfusion Reactions: No Reported Reaction Past Psychological History: No Psychological Hx Reported Smoking Status: Never smoker Past Alcohol Use History: Daily Past Drug Use History: None Reported - Past Family History Mother Family Medical History: No Reported History General Exam Limitations: no limitations General appearance: alert, in no apparent distress Head exam: Present: atraumatic, normocephalic, normal inspection Eye exam: Present: normal appearance, PERRL, EOMI. Absent: scleral icterus, conjunctival injection, periorbital swelling ENT exam: Present: normal exam, mucous membranes moist Neck exam: Present: normal inspection. Absent: tenderness, meningismus, lymphadenopathy Respiratory exam: Present: normal lung sounds bilaterally. Absent: respiratory distress, wheezes, rales, rhonchi, stridor Cardiovascular Exam: Present: regular rate, normal rhythm, normal heart sounds. Absent: systolic murmur, diastolic murmur, rubs, gallop, clicks GI/Abdominal exam: Present: soft, normal bowel sounds. Absent: distended, tenderness, guarding, rebound, rigid Extremities exam: Present: normal inspection, full ROM, normal capillary refill. Absent: tenderness, pedal edema, joint swelling, calf tenderness Back exam: Present: normal inspection Neurological exam: Present: alert, oriented X3, CN II-XII intact Psychiatric exam: Present: normal affect, normal mood Skin exam: Present: warm, dry, intact, normal color. Absent: rash Course Vital Signs 07/12/23 11:38 Temperature 98.6 F Pulse Rate 52 L Respiratory 18 Rate Blood Pressure 123/50 O2 Sat by Pulse 100 Oximetry - Reevaluation(s) Reevaluation #1: 07/12/23 13:53 Medical record is reviewed Reevaluation #2: 07/12/23 13:53 Patient symptoms unchanged here in the ER Patient still presents with chest pain Reevaluation #3: 07/12/23 13:53 Informed of results and questions answered Reevaluation #4: Was pt. sent in by a medical professional or institution (, REHAN, ELECTRONIC SEMICONDUCTOR PROCESSOR, urgent care, hospital, or [facility]...) When possible be specific @ -no Did you speak to anyone other than the patient for history (EMS, parent, family, police, friend...)? What history was obtained from this source @ -no Did you review nursing and triage notes (agree or disagree)? Why? @ -agree Are old charts reviewed (outside hosp., previous admission, EMS record, old EKG, old radiological studies, urgent care reports/EKG's, [facility] records)? Repo rt findings @ -yes Differential Diagnosis (chest pain, altered mental status, abdominal pain women, abdominal pain men, vaginal bleeding, weakness, fever, dyspnea, syncope, headache, dizziness, GI bleed, back pain, seizure, CVA, palpatations, mental health, musculoskeletal)? @ -prior EKG interpreted by me (3pts min.). @ -yes X-rays interpreted by me (1pt min.). @ -yes negative for acute disease CT interpreted by me (1pt min.). @ -no U/S interpreted by me (1pt. min.). @ -no What testing was considered but not performed or refused? (CT, X-rays, U/S, labs)? Why? @ -none What meds were considered but not given or refused? Why? @ -none Did you discuss the management of the patient with other professionals (professionals i.e. REHAN [place], ELECTRONIC SEMICONDUCTOR PROCESSOR, lab, RT, psych nurse, social work associate, sprinkler inspector, te acher, employment security officer, cyanide case hardener)? Give summary @ -no Was smoking cessation discussed for >3mins.? @ -no Were there social determinants of health that impacted care today? How? (Homelessness, low income, unemployed, alcoholism, drug addiction, transportation, low edu. Level, literacy, decrease access to med. care, half-way, rehab)? @ -none Was there de-escalation of care discussed even if they declined (Discuss DNR or withdrawal of care, Hospice)? DNR status @ -no What co-morbidities impacted this encounter? (DM, HTN, Smoking, COPD, CAD, Cancer, CVA, ARF, Chemo, Hep., AIDS, mental health diagnosis, sleep apnea, morbid obesity)? @ -none Was patient admitted / discharged? Hospital course, mention meds given and route, prescriptions, significant lab abnormalities, going to OR and other pe rtinent info. @ - Was critical care preformed (if so, how long)? @ -no Undiagnosed new problem with uncertain prognosis? @ -no Drug Therapy requiring intensive monitoring for toxicity (Heparin, Nitro, Insulin, Cardizem)? @ -no Were any procedures done? @ -no Diagnosis/symptom? @ - Acute, or Chronic, or Acute on Chronic? @ -Acute Uncomplicated (without systemic symptoms) or Complicated (systemic symptoms)? @ -Complicated Side effects of treatment? @ -no Exacerbation, Progression, or Severe Exacerbation? @ -exacerbation Poses a threat to life or bodily function? How? (Chest pain, USA, LA, pneumonia, PE, COPD, DKA, ARF, appy, cholecystitis, CVA, Diverticulitis, Homicidal, Suicidal, threat to staff... and all critical care pts) @ -yes Reevaluation #5: Differential Chest Pain: Stable Angina, Unstable Angina, STEMI, NSTEMI Aortic Dissection, Pneumothorax, Musculoskeletal, Esophageal Spasm GERD, Cholecystitis, Pancreatitis, Zoster, this is not meant to be an all-inclusive list. - Consultations Consultation #1: Spoke to [facility] who agrees to admit this patient Chest Pain MDM - MDM 72 female to ER with chest pain anterior chest heaviness as well as shortness of breath and uncontrollable blood pressure. Patient's blood pressure has been fluctuating significantly at home seen by primary care sent to the ER for evaluation of persistent chest pain and angina, patient does describe heaviness of her chest Critical Care Time Critical Care Time: Yes Total Critical Care Time: 31 Disposition Clinical Impression: Chest pain, Unstable angina pectoris Disposition: ADMITTED IP TO THIS HOSP Condition: Fair Instructions (If sedation given, give patient instructions): Chest Pain (ED) Is patient prescribed a controlled substance at d/c from ED?: No Referrals: Tj Elaine MD [Primary Care Provider] - 1-2 days Time of Disposition: 13:00
[2023-07-12 12:46] LABS: Basophils # (A) 0.1 k/uL (0-0.2); Basophils % (A) 1 %; Eosinophils # (A) 0.3 k/uL (0-0.7); Eosinophils % (A) 4 %; HCT 43.8 % (34.0-46.0); HGB 14.5 gm/dL (11.4-16.0); Lymphocytes # (A) 1.4 k/uL (1.0-4.8); Lymphocytes % (A) 19 %; MCH 31.2 pg (25.0-35.0); MCHC 33.2 g/dL (31.0-37.0); Mean Platelet Volume 8.1; Monocytes # (A) 0.5 k/uL (0-1.0); Monocytes % (A) 6 %; Neutrophils # (A) 4.9 k/uL (1.3-7.7); Neutrophils % (A) 69 %; Platelet Count 221 k/uL (150-450); RBC 4.66 m/uL (3.80-5.40); RDW 13.2 % (11.5-15.5); WBC 7.2 k/uL (3.8-10.6)
[2023-07-12 12:59] LABS: ALT 19 U/L (4-34); AST 25 U/L (14-36); African American GFR (CKD) 82 (>60 ml/min/1.73 sqM); Alkaline Phosphatase 57 U/L (38-126); Anion Gap 5 mmol/L; Blood Urea Nitrogen 18 mg/dL (7-17); Calcium 9.6 mg/dL (8.4-10.2); Carbon Dioxide 26 mmol/L (22-30); Chloride 108 mmol/L (98-107); Glucose 88 mg/dL (74-99); Lipase 131 U/L (23-300); Magnesium 1.9 mg/dL (1.6-2.3); Non-African American GFR(CKD) 71 (>60 ml/min/1.73 sqM); Potassium 3.6 mmol/L (3.5-5.1); Sodium 139 mmol/L (137-145); Total Bilirubin 0.9 mg/dL (0.2-1.3); Total Protein 6.7 g/dL (6.3-8.2)
[2023-07-12 13:01] LABS: Prothrombin Time 10.6 sec (10.0-12.5)
[2023-07-12 13:06] LABS: Partial Thromboplastin Time 21.8 sec (22.0-30.0)
[2023-07-12 13:08] LABS: NT-Pro-B-Type Natriuretic Pept 320 pg/mL
[2023-07-12] MEDS ORDERED: MORPHINE SULFATE 4 MG/ML SYRINGE IV PRN (13:51)
[2023-07-12] MEDS ORDERED: ONDANSETRON 4 MG/2 ML VIAL IVP PRN (13:51)
[2023-07-12] MEDS ORDERED: NALOXONE 0.4 MG/ML 1 ML VIAL IV PRN (13:51)
--- NOTE | 2023-07-12 14:47 | P.HPIM ---
History of Present Illness H&P Date: 07/12/23 History of present illness; patient is a 72-year-old lady with past medical history significant for hypertension, hypothyroidism who was sent into ER by her PCPs office for chest pain. Patient stated that for the last couple of weeks has been having chest pressure, central location, nonradiating, no aggravating or relieving factor associate with this chest pressure. Patient did complain of shortness of breath on exertion and reduced exercise tolerance. Patient also noticed that her blood pressure was elevated. Denies any palpitation. Denies any nausea, vomiting abdominal pain. Because of this chest pressure patient was seen at PCPs office and they told her to come to the ER Initial lab work done in the ER showed WBC 7.2, hemoglobin 14.5, platelet count 221, sodium 139, potassium 3.6, BUN 18, creatinine 0.82, AST 25, ALT 19, troponin 0.012, Patient admitted to internal medicine service REVIEW OF SYSTEMS: CONSTITUTIONAL: No fever, no malaise, no fatigue. HEENT: No recent visual problems or hearing problems. Denied any sore throat. CARDIOVASCULAR: As mentioned above PULMONARY: As mentioned above GASTROINTESTINAL: No diarrhea, no nausea, no vomiting, no abdominal pain. NEUROLOGICAL: No headaches, no weakness, no numbness. HEMATOLOGICAL: Denies any bleeding or petechiae. GENITOURINARY: Denies any burning micturition, frequency, or urgency. MUSCULOSKELETAL/RHEUMATOLOGICAL: Denies any joint pain, swelling, or any muscle pain. ENDOCRINE: Denies any polyuria or polydipsia. The rest of the 14-point review of systems is negative. PHYSICAL EXAMINATION: GENERAL: The patient is alert and oriented x3, not in any acute distress. Well developed, well nourished. HEENT: Pupils are round and equally reacting to light. EOMI. No scleral icterus. No conjunctival pallor. Normocephalic, atraumatic. No pharyngeal erythema. No thyromegaly. CARDIOVASCULAR: S1 and S2 present. No murmurs, rubs, or gallops. PULMONARY: Chest is clear to auscultation, no wheezing or crackles. ABDOMEN: Soft, nontender, nondistended, normoactive bowel sounds. No palpable organomegaly. MUSCULOSKELETAL: No joint swelling or deformity. EXTREMITIES: No cyanosis, clubbing, or pedal edema. NEUROLOGICAL: Gross neurological examination did not reveal any focal deficits. SKIN: No rashes. Assessment and plan Chest pain, rule out acute coronary syndrome Hypertension Hypothyroidism Monitor vital signs Monitor CBC Monitor CMP Continue telemetry monitoring Troponins. Order D-dimer Resume home meds Continue aspirin Ordered lipid panel Ordered HbA1c level Ordered 2D echo Consult cardiology Labs and medication were reviewed.. Continue same treatment. Continue with symptomatic treatment. Resume home medication. Monitor labs and vitals. DVT and GI prophylaxis. Further recommendations as per clinical course of the patient Dictation was produced using [employer] dictation software. please excuse any grammatical, word or spelling errors. Past Medical History Past Medical History: Asthma, Deep Vein Thrombosis (DVT), GI Bleed, Hypertension, Thyroid Disorder Additional Past Medical History / Comment(s): hospitalized 06/2017 with colitis History of Any Multi-Drug Resistant Organisms: None Reported Past Surgical History: Back Surgery, Section, Orthopedic Surgery, Tonsillectomy Additional Past Surgical History / Comment(s): chiari sx, tonsils x2, shoulder, back x2, knee, left foot Past Anesthesia/Blood Transfusion Reactions: No Reported Reaction Past Psychological History: No Psychological Hx Reported Smoking Status: Never smoker Past Alcohol Use History: Daily Past Drug Use History: None Reported - Past Family History Mother Family Medical History: No Reported History Medications and Allergies Home Medications Medication Instructions Recorded Confirmed Type Aspirin [Adult Low Dose Aspirin EC] 81 mg PO DAILY 08/26/17 07/12/23 History Levothyroxine Sodium [Synthroid] 25 mcg PO DAILY 08/26/17 07/12/23 History Vits A,C,E/Lutein/Minerals 1 tab PO DAILY 08/26/17 07/12/23 History [Ocuvite with Lutein Tablet] Irbesartan/Hydrochlorothiazide 1 tab PO DAILY 07/12/23 07/12/23 History [Avalide 150-12.5 mg Tablet] Allergies Allergy/AdvReac Type Severity Reaction Status Date / Time latex Allergy Rash/Hives Verified 07/12/23 14:09 allergy shot Allergy Rash/Hives Uncoded 07/12/23 14:09 Physical Exam Vitals: Vital Signs Temp Pulse Resp BP Pulse Ox 07/12/23 11:38 98.6 F 52 L 18 123/50 100 Intake and Output 07/11/23 07/12/23 07/12/23 22:59 06:59 14:59 Other: Weight 74.843 kg Results CBC & Chem 7: 07/12/23 12:24 07/12/23 12:24 Labs: Abnormal Lab Results - Last 24 Hours (Table) 07/12/23 07/12/23 Range/Units 12:24 12:24 APTT 21.8 L (22.0-30.0) sec Chloride 108 H (98-107) mmol/L BUN 18 H (7-17) mg/dL
--- NOTE | 2023-07-12 15:25 | XR ---
EXAMINATION TYPE: XR chest 1V portable DATE OF EXAM: 07/12/2023 Comparison: No prior. Clinical History: 72-year-old female chest pain Findings: Hazy densities relating to overlying soft tissue. Heart appears borderline in size. Mild atherosclero tic arch calcifications. Mild central peribronchial cuffing without consolidation or pleural effusion . Impression: Borderline heart size. Mild central peribronchial cuffing could reflect bronchitis or asthma. Otherwi se, no definite acute process.
[2023-07-12] MEDS: SODIUM CHLORIDE 0.9% 1,000 ML IV SCH (19:20)
[2023-07-12] MEDS: ACETAMINOPHEN TAB 500 MG TAB PO PRN (21:45)
[2023-07-13] MEDS: LEVOTHYROXINE 25 MCG TAB PO SCH (06:14)
[2023-07-13 08:10] VITALS: PULSE 52; RESP 14; TEMP 98
[2023-07-13] MEDS ORDERED: LOSARTAN 50 MG TAB PO SCH (09:00)
[2023-07-13] MEDS: ASPIRIN 81 MG PO SCH (09:36)
[2023-07-13] MEDS: hydroCHLOROthiazide 12.5 MG CAP PO SCH (09:36)
[2023-07-13] MEDS: LOSARTAN 50 MG TAB PO SCH (09:37)
--- NOTE | 2023-07-13 09:55 | P.CRDCN ---
History of Present Illness History of present illness: HISTORY OF PRESENT ILLNESS: This is a 72-year-old female with a past medical history significant for hypertension and hypothyroidism. Patient follows with a flake cutter operator out of town, Dr. Reddy. We have been asked to see the patient in consultation for chest pain. Patient examined at the bedside. Patient states that her primary care physician recently changed her losartan to irbesartan. She states that at home her blood pressure has been elevated since the change in her medications. She also reports that she has been feeling short of breath and states that she cannot take a full breath due to her chest pressure. Blood pressure has been elevated in the [id number] during hospitalization. At the time of examination she denies chest pain or pressure. DIAGNOSTICS: - EKG reveals sinus mechanism with no signs of acute ischemia. - Chest xray borderline heart size. Mild central peribronchial cuffing could relate to bronchitis or asthma. Otherwise no definite acute process noted.. - Laboratory data: WBC 7.2. Hemoglobin 14.5. Platelet count 221. D-dimer 0.38. Sodium 139. Potassium 3.6. BUN 18. Creatinine 0.82. Magnesium 1.9. Troponin negative x 3. proBNP 320. - Current home cardiac medications include irbesartan/hydrochlorothiazide 150- 12.5 mg daily and aspirin 81 mg daily. - Most recent echocardiogram obtained in October 2018 revealing normal EF, mild pulmonary hypertension, mild LVH, mild MR, mild AR, mild TR -Patient underwent Lexiscan stress test in October 2018 which was negative for ischemia - Cardiac catheterization history: 2005 revealing normal coronary arteries REVIEW OF SYSTEMS: At the time of my exam: CONSTITUTIONAL: Denies fever or chills. HEENT: Denies blurred vision, vision changes, or eye pain. Denies hemoptysis CARDIOVASCULAR: Denies chest pain. Denies orthopnea. Denies PND. Denies palpitations RESPIRATORY: Denies shortness of breath. GASTROINTESTINAL: Denies abdominal pain. Denies nausea or vomiting. HEMATOLOGIC: Denies bleeding disorders. GENITOURINARY: Denies any blood in urine. SKIN: Denies pruitis. Denies rash. PHYSICAL EXAM: VITAL SIGNS: Reviewed. GENERAL: Well-developed in no acute distress. HEENT: Head is normocephalic. Pupils are equal, round. Sclerae anicteric. Mucous membranes of the mouth are moist. Neck supple. No JVD or thyromegaly LUNGS: Respirations even and unlabored. Lungs essentially clear to auscultation bilaterally. HEART: Regular rate and rhythm. S1 and S2 heard. ABDOMEN: Soft. Nondistended. Nontender. EXTREMITIES: Normal range of motion. No clubbing or cyanosis. Peripheral pulses intact. No lower extremity edema NEUROLOGIC: Awake and alert. Oriented x 3. ASSESSMENT: Hypertension, uncontrolled Chest pain, troponin negative x 3, may be secondary to uncontrolled hypertension Hypothyroidism PLAN: An acute coronary event has been ruled out Resume home cardiac medications Will change patient back to losartan. Increase dosage to 100 mg daily. If blood pressures remain uncontrolled we will add amlodipine Obtain 2D echo to assess cardiac structure and function Discussed stress testing with patient and recommended dobutamine stress test to be performed tomorrow when blood pressures are under better control. Patient states she does not want to undergo stress testing while in the hospital and is hoping to be discharged home today. Patient would rather follow-up with her primary flake cutter operator and undergo stress testing at that time Patient may be discharged home this afternoon from a cardiac standpoint if her blood pressures remained stable. Nurse practitioner note has been reviewed by physician. Signing provider agrees with the documented findings, assessment, and plan of care documented by LOG PREPARER as a scribe. Past Medical History Past Medical History: Asthma, Deep Vein Thrombosis (DVT), GI Bleed, Hypertension, Thyroid Disorder Additional Past Medical History / Comment(s): hospitalized 06/2017 with colitis, IBS, History of Any Multi-Drug Resistant Organisms: None Reported Past Surgical History: Back Surgery, Section, Orthopedic Surgery, Tonsillectomy Additional Past Surgical History / Comment(s): chiari sx, tonsils x2, shoulder, back x2, knee, left foot Past Anesthesia/Blood Transfusion Reactions: No Reported Reaction Past Psychological History: No Psychological Hx Reported Smoking Status: Never smoker Past Alcohol Use History: Daily Past Drug Use History: None Reported - Past Family History Mother Family Medical History: No Reported History Medications and Allergies Home Medications Medication Instructions Recorded Confirmed Type Aspirin [Adult Low Dose Aspirin EC] 81 mg PO DAILY 08/26/17 07/12/23 History Levothyroxine Sodium [Synthroid] 25 mcg PO DAILY 08/26/17 07/12/23 History Vits A,C,E/Lutein/Minerals 1 tab PO DAILY 08/26/17 07/12/23 History [Ocuvite with Lutein Tablet] Irbesartan/Hydrochlorothiazide 1 tab PO DAILY 07/12/23 07/12/23 History [Avalide 150-12.5 mg Tablet] Allergies Allergy/AdvReac Type Severity Reaction Status Date / Time latex Allergy Rash/Hives Verified 07/12/23 14:09 allergy shot Allergy Rash/Hives Uncoded 07/12/23 14:09 Physical Exam Vitals: Vital Signs Temp Pulse Pulse Resp BP BP BP 07/13/23 08:26 07/13/23 07:00 98 F 52 L 14 175/63 07/13/23 02:29 97.8 F 49 L 16 149/55 07/12/23 22:44 98.1 F 59 L 16 150/55 07/12/23 22:38 59 L 07/12/23 21:45 60 18 159/60 07/12/23 11:38 98.6 F 52 L 18 123/50 Pulse Ox 07/13/23 08:26 97 07/13/23 07:00 97 07/13/23 02:29 97 07/12/23 22:44 96 07/12/23 22:38 07/12/23 21:45 95 07/12/23 11:38 100 Intake and Output 07/12/23 07/13/23 07/13/23 22:59 06:59 14:59 Other: # Voids 2 Weight 74.843 kg Results 07/12/23 12:24 07/12/23 12:24 Cardiac Enzymes 07/12/23 07/12/23 07/12/23 Range/Units 12:24 12:24 15:59 AST 25 (14-36) U/L Troponin I <0.012 <0.012 (0.000-0.034) ng/mL 07/12/23 Range/Units 18:45 AST (14-36) U/L Troponin I <0.012 (0.000-0.034) ng/mL Coagulation 07/12/23 Range/Units 12:24 PT 10.6 (10.0-12.5) sec APTT 21.8 L (22.0-30.0) sec CBC 07/12/23 Range/Units 12:24 WBC 7.2 (3.8-10.6) k/uL RBC 4.66 (3.80-5.40) m/uL Hgb 14.5 (11.4-16.0) gm/dL Hct 43.8 (34.0-46.0) % Plt Count 221 (150-450) k/uL Comprehensive Metabolic Panel 07/12/23 Range/Units 12:24 Sodium 139 (137-145) mmol/L Potassium 3.6 (3.5-5.1) mmol/L Chloride 108 H (98-107) mmol/L Carbon Dioxide 26 (22-30) mmol/L BUN 18 H (7-17) mg/dL Creatinine 0.82 (0.52-1.04) mg/dL Glucose 88 (74-99) mg/dL Calcium 9.6 (8.4-10.2) mg/dL AST 25 (14-36) U/L ALT 19 (4-34) U/L Alkaline Phosphatase 57 (38-126) U/L Total Protein 6.7 (6.3-8.2) g/dL Albumin 4.0 (3.5-5.0) g/dL Current Medications Generic Name Dose Route Start Last Admin Trade Name Freq PRN Reason Stop Dose Admin Acetaminophen 500 mg 07/12/23 16:00 07/12/23 21:45 Acetaminophen Tab 500 Mg Tab PO 500 mg Q6HR PRN Administration Mild Pain or Fever > 100.5 Aspirin 81 mg 07/13/23 09:00 07/13/23 09:36 Aspirin 81 Mg PO 81 mg DAILY OH Administration Hydrochlorothiazide 12.5 mg 07/13/23 09:00 07/13/23 09:36 Hydrochlorothiazide 12.5 Mg Cap PO 12.5 mg DAILY OH Administration Sodium Chloride 1,000 mls @ 20 mls/hr 07/12/23 14:00 07/12/23 19:20 Saline 0.9% IV Not Given .Q24H OH Levothyroxine Sodium 25 mcg 07/13/23 06:30 07/13/23 06:14 Levothyroxine 25 Mcg Tab PO 25 mcg DAILY@0630 OH Administration Losartan Potassium 100 mg 07/13/23 09:00 07/13/23 09:37 Losartan 50 Mg Tab PO 100 mg DAILY OH Administration Morphine Sulfate 4 mg 07/12/23 13:51 Morphine Sulfate 4 Mg/Ml Syringe IV Q4HR PRN Severe Pain (Scale 7 to 10) Naloxone HCl 0.2 mg 07/12/23 13:51 Naloxone 0.4 Mg/Ml 1 Ml Vial IV Q2M PRN Opioid Reversal Ondansetron HCl 4 mg 07/12/23 13:51 Ondansetron 4 Mg/2 Ml Vial IVP Q8HR PRN Nausea And Vomiting Intake and Output 07/12/23 07/13/23 07/13/23 22:59 06:59 14:59 Other: # Voids 2 Weight 74.843 kg 07/12/23 12:24 07/12/23 12:24
[2023-07-13] MEDS: amLODIPine 5 MG TAB PO SCH (10:45)
--- NOTE | 2023-07-13 11:28 | CA ---
Transthoracic Echo Report Name: Kaley Harmon Age: 72 Gender: F : 1950 Exam Date: 07/13/2023 07:42 Exam Location: [facility] Ht (in): 60 Wt (lb): 165 Ordering Physician: Emil Albrecht MD Attending/Referring Phys: Financial Recruiter Mago Arnold RDCS Procedure CPT: Indications: Chest Pain Cardiac Hx: Technical Quality: Fair Contrast 1: Total Dose (mL): Contrast 2: Total Dose (mL): MEASUREMENTS (Male / Female) Normal Values 2D ECHO LV Diastolic Diameter PLAX 4.7 cm 4.2 - 5.9 / 3.9 - 5.3 cm LV Systolic Diameter PLAX 3.5 cm IVS Diastolic Thickness 1.2 cm 0.6 - 1.0 / 0.6 - 0.9 cm LVPW Diastolic Thickness 1.2 cm 0.6 - 1.0 / 0.6 - 0.9 cm LV Relative Wall Thickness 0.5 RV Internal Dim ED PLAX 3.0 cm LVOT Diameter 2.1 cm LA Systolic Diameter LX 3.6 cm 3.0 - 4.0 / 2.7 - 3.8 cm LV Diastolic Volume MOD 4C 113.8 cm??? LV Systolic Volume MOD 4C 53.8 cm??? LV Ejection Fraction MOD 4C 52.8 % LV Cardiac Index MOD 4C 2053.5 cm???/min???m??? LV Diastolic Length 4C 7.8 cm LV Systolic Length 4C 6.1 cm LV Diastolic Volume MOD 2C 94.2 cm??? LV Systolic Volume MOD 2C 43.8 cm??? LV Ejection Fraction MOD 2C 53.5 % LV Cardiac Index MOD 2C 1723.5 cm???/min???m??? LV Diastolic Length 2C 7.9 cm LV Systolic Length 2C 6.1 cm LA Volume 51.0 cm??? 18 - 58 / 22 - 52 cm??? LA Volume Index 28.1 cm???/m??? 16 - 28 cm???/m??? M-MODE Aortic Root Diameter MM 3.0 cm AV Cusp Separation MM 2.1 cm DOPPLER AV Peak Velocity 145.1 cm/s AV Peak Gradient 8.4 mmHg AV Mean Velocity 94.0 cm/s AV Mean Gradient 4.1 mmHg AV Velocity Time Integral 32.5 cm AI Peak Velocity 320.6 cm/s AI Peak Gradient 41.1 mmHg AI Pressure Half Time 1017.7 ms LVOT Peak Velocity 124.3 cm/s LVOT Peak Gradient 6.2 mmHg LVOT Velocity Time Integral 30.4 cm LVOT Stroke Volume 110.2 cm??? LVOT Stroke Volume Index 64.1 ml/m??? LVOT Cardiac Index 3769.4 cm???/min???m??? AV Area Cont Eq vti 3.4 cm??? AV Area Cont Eq pk 3.1 cm??? MV Area PHT 4.3 cm??? Mitral E Point Velocity 89.0 cm/s Mitral A Point Velocity 79.3 cm/s Mitral E to A Ratio 1.1 MV Deceleration Time 178.0 ms TR Peak Velocity 271.9 cm/s TR Peak Gradient 29.6 mmHg Right Ventricular Systolic Press 34.6 mmHg FINDINGS Left Ventricle Left ventricular ejection fraction is estimated at 50-55 %. Left ventricular cavity size normal. Mildly increased septal wall thickness. Mildly increased posterior wall thickness. Normal left ventricular wall motion. Right Ventricle Normal right ventricular size and function. Mild pulmonary hypertension. Right Atrium Normal right atrial size. No right atrial thrombus or mass seen. Left Atrium Normal left atrial size. No left atrial thrombus or mass present. Mitral Valve Mitral valve thickened. Mitral annular calcification. Trace mitral regurgitation. Aortic Valve Trileaflet aortic valve. Thickened aortic valve without stenosis. Mild aortic regurgitation. Tricuspid Valve Structurally normal tricuspid valve. Mild tricuspid regurgitation. Pulmonic Valve Structurally normal pulmonic valve. Trace pulmonic regurgitation. Pericardium No pericardial or pleural effusion. Aorta Normal size aortic root and proximal ascending aorta. CONCLUSIONS Normal LV function Mild pulmonary hypertension Mild aortic regurgitation Previewed by: Dr. Terrence Renee MD (Electronically Signed) Final Date: 13 July 2023 11:27
[2023-07-13 11:29] VITALS: BP 157/62
--- NOTE | 2023-07-13 12:16 | P.DS ---
Providers Date of admission: 07/12/23 13:52 Expected date of discharge: 07/13/23 Attending physician: Tonia Andrews Consults: 07/12/23 13:51 Consult Physician Routine Consulting Provider: Toni Bardales Consult Reason/Comments: cp Do you want consulting provider notified?: Yes Primary care physician: Tj Elaine Hospital Course: Discharge diagnoses; Chest pain, rule out acute coronary syndrome Hypertension Hypothyroidism Hospital course; patient is a 72-year-old lady with past medical history significant for hypertension, hypothyroidism who was sent into ER by her PCPs office for chest pain. Patient stated that for the last couple of weeks has been having chest pressure, central location, nonradiating, no aggravating or relieving factor associate with this chest pressure. Patient did complain of shortness of breath on exertion and reduced exercise tolerance. Patient also noticed that her blood pressure was elevated. Denies any palpitation. Denies any nausea, vomiting abdominal pain. Because of this chest pressure patient was seen at PCPs office and they told her to come to the ER Initial lab work done in the ER showed WBC 7.2, hemoglobin 14.5, platelet count 221, sodium 139, potassium 3.6, BUN 18, creatinine 0.82, AST 25, ALT 19, troponin 0.012, Patient admitted to internal medicine service 07/12. Patient seen and examined. Cardiology eval the patient and increased the dose of losartan to 100 mg. Recommended stress testing but patient this time is refusing almost to be done outpatient. Blood pressure has slightly improved, patient keen to be discharged home, discussed with her regarding adding Norvasc with patient at this time refused. Cardiology has cleared the patient for discharge PHYSICAL EXAMINATION: GENERAL: The patient is alert and oriented x3, not in any acute distress. Well developed, well nourished. HEENT: Pupils are round and equally reacting to light. EOMI. No scleral icterus. No conjunctival pallor. Normocephalic, atraumatic. No pharyngeal erythema. No thyromegaly. CARDIOVASCULAR: S1 and S2 present. No murmurs, rubs, or gallops. PULMONARY: Chest is clear to auscultation, no wheezing or crackles. ABDOMEN: Soft, nontender, nondistended, normoactive bowel sounds. No palpable organomegaly. MUSCULOSKELETAL: No joint swelling or deformity. EXTREMITIES: No cyanosis, clubbing, or pedal edema. NEUROLOGICAL: Gross neurological examination did not reveal any focal deficits. SKIN: No rashes. Dictation was produced using [address] [employer] dictation software. please excuse any grammatical, word or spelling errors. Patient Condition at Discharge: Fair Plan - Discharge Summary Discharge Rx Participant: No New Discharge Prescriptions: New Losartan [Cozaar] 100 mg PO DAILY 30 Days #30 tab hydroCHLOROthiazide [Hydrodiuril] 12.5 mg PO DAILY #30 cap Continue Levothyroxine Sodium [Synthroid] 25 mcg PO DAILY Vits A,C,E/Lutein/Minerals [Ocuvite with Lutein Tablet] 1 tab PO DAILY Aspirin [Adult Low Dose Aspirin EC] 81 mg PO DAILY Discontinued Irbesartan/Hydrochlorothiazide [Avalide 150-12.5 mg Tablet] 1 tab PO DAILY Discharge Medication List Aspirin [Adult Low Dose Aspirin EC] 81 mg PO DAILY 08/26/17 [History] Levothyroxine Sodium [Synthroid] 25 mcg PO DAILY 08/26/17 [History] Vits A,C,E/Lutein/Minerals [Ocuvite with Lutein Tablet] 1 tab PO DAILY 08/26/17 [History] Losartan [Cozaar] 100 mg PO DAILY 30 Days #30 tab 07/13/23 [Rx] hydroCHLOROthiazide [Hydrodiuril] 12.5 mg PO DAILY #30 cap 07/13/23 [Rx] Follow up Appointment(s)/Referral(s): Tj Elaine MD [Primary Care Provider] - 1-2 days Patient Instructions/Handouts: Chest Pain (ED)
== END 2023-07-13 13:50 | disposition home or self-care (01) ==
LOC: EC 11:36 → 6NMEDSUR 13:52
PROVIDERS: ADMIT Hospitalist; ATTEND Hospitalist
DX: R07.9 Chest pain, unspecified (principal); I10 Essential (primary) hypertension; E03.9 Hypothyroidism, unspecified; Z86.718 Personal history of other venous thrombosis and embolism; Z79.82 Long term (current) use of aspirin; Z79.890 Hormone replacement therapy; Z79.51 Long term (current) use of inhaled steroids; Z91.040 Latex allergy status
CPT/HCPCS: 99291; 36415; 94760; 93005; 93306; 85379; 83880; 80053; 83690; 83735; 84484; 85025; 85610; 85730; 71045; G0378 ×2

== ENCOUNTER → 2023-08-09 | Outpatient (CLI) | payer MEDICARE ==
--- NOTE | 2023-08-22 20:57 | MR ---
EXAMINATION: MR tib fib RT wo con DATE OF EXAM: 08/09/2023 COMPARISON: CT right leg 01/06/2023 HISTORY: Rt tib/fib pain/mass/swelling and redness x2 years TECHNIQUE: Multiplanar, multisequence images of the right leg were acquired without contrast. FINDINGS: BONES/MARROW: Normal bone marrow signal. SOFT TISSUES: Fat density structure within the medial head of the gastrocnemius muscle at the distal myotendinous junction measuring approximately 5 x 2.3 x 8.5 cm (AP X TV X CC), consistent with an int ramuscular lipoma. Additional smaller intramuscular lipoma within the proximal lateral soleus muscula ture. Nonspecific subcutaneous edema in the mid/distal lower leg, most prominently anteriorly, but also pre sent medial and laterally. NEUROVASCULAR: Visualized neurovascular structures are normal. OTHER: Normal. No mass. No lymphadenopathy. IMPRESSION: 1. 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 2. Nonspecific subcutaneous edema mid/distal lower leg.
== END | disposition home or self-care (01) ==
LOC: RADMRIMAIN 14:17
PROVIDERS: ATTEND Surgery Vascular Surgery
DX: D17.9 Benign lipomatous neoplasm, unspecified (principal); R60.0 Localized edema

== ENCOUNTER → 2023-12-03 | Outpatient (CLI) | payer MEDICARE ==
[2023-12-03 15:33] LABS: ALT 19 U/L (8-44); AST 23 U/L (13-35); Albumin 3.8 g/dL (3.8-4.9); Albumin/Globulin Ratio 1.58 Ratio (1.60-3.17); Alkaline Phosphatase 59 U/L (41-126); BUN/Creat Ratio 14.12 Ratio (12.00-20.00); Blood Urea Nitrogen 11.3 mg/dL (9.0-27.0); Calcium 9.1 mg/dL (8.7-10.3); Carbon Dioxide 21.8 mmol/L (21.6-31.8); Chloride 107 mmol/L (96-109); Chol/HDL Ratio 2.98 Ratio; Globulin 2.4 g/dL (1.6-3.3); Glucose 103 mg/dL (70-110); Potassium 4.1 mmol/L (3.5-5.5); Sodium 141 mmol/L (135-145); T4, Free (Free Thyroxine) 1.19 ng/dL (0.80-1.80); Total Bilirubin 0.2 mg/dL (0.3-1.2); Total Protein 6.2 g/dL (6.2-8.2)
[2023-12-03 17:25] LABS: Basophils # (A) 0.05 X 10*3/uL (0.00-0.10); Basophils % (A) 0.7 %; Eosinophils # (A) 0.12 X 10*3/uL (0.04-0.35); Eosinophils % (A) 1.7 %; HCT 43.3 % (37.2-46.3); HGB 14.3 g/dL (12.0-15.0); Lymphocytes # (A) 1.43 X 10*3/uL (0.90-5.00); Lymphocytes % (A) 20.6 %; MCH 29.9 pg (27.0-32.0); MCV 90.6 FL (80.0-97.0); Mean Platelet Volume 10.7 FL (9.5-12.2); Monocytes # (A) 0.78 X 10*3/uL (0.20-1.00); Monocytes % (A) 11.2 %; NRBC Per 100 WBC 0 X 10*3/uL (0.00-0.01); Neutrophils % (A) 64.9 %; Platelet Count 219 X 10*3/uL (140-440); RBC 4.78 X 10*6/uL (4.10-5.20); RDW 13.4 % (11.5-14.5); WBC 6.94 X 10*3/uL (4.50-10.00)
== END | disposition home or self-care (01) ==
LOC: LABWHC1 08:03
PROVIDERS: ATTEND Family Medicine
CPT/HCPCS: 36415; 80053; 80061; 83036; 84439; 84443; 85025

== ENCOUNTER → 2023-12-22 | Outpatient (CLI) | payer MEDICARE ==
--- NOTE | 2023-12-22 22:11 | XR ---
EXAMINATION TYPE: XR Hip Complete RT DATE OF EXAM: 12/22/2023 5:54 PM COMPARISON: None. CLINICAL INDICATION: Female, 73 years old with history of PAIN IN RIGHT HIP M25.551, TECHNIQUE: 2 view(s) obtained. FINDINGS: Femoral head articulates with the acetabulum. Joint space is preserved. No acute fracture or dislocat ion evident. Iliac stent is partially visualized. IMPRESSION: 1. No acute osseous abnormality right hip [facility], , 12/22/2023 10:09 PM
--- NOTE | 2023-12-22 22:16 | XR ---
EXAMINATION TYPE: XR knee complete RT DATE OF EXAM: 12/22/2023 5:54 PM COMPARISON: 04/10/2010 CLINICAL INDICATION: Female, 73 years old with history of PAIN IN RIGHT KNEE M25.561, TECHNIQUE: 3 view(s) obtained. FINDINGS: No acute fracture or dislocation evident. No significant joint effusion. Calcifications in bilateral menisci. There is narrowing of the joint spaces most notably the patellof emoral joint space. Posterior patellar spurring is present superiorly and inferiorly. IMPRESSION: 1. Progressive degenerative changes through the right knee joint space most notably in the patellofe moral joint space. 2. Consider calcium phosphate deposition disease [facility], , 12/22/2023 10:13 PM
== END | disposition home or self-care (01) ==
LOC: RADXRMAIN 17:30
PROVIDERS: ATTEND Family Medicine
DX: M17.11 Unilateral primary osteoarthritis, right knee (principal); M25.551 Pain in right hip
CPT/HCPCS: 73502

== ENCOUNTER → 2023-12-27 | Outpatient (CLI) | payer MEDICARE ==
--- NOTE | 2023-12-27 12:16 | US ---
EXAMINATION TYPE: US venous doppler duplex LE RT DATE OF EXAM: 12/27/2023 12:06 PM COMPARISON: 05/26/22 CLINICAL INDICATION: Female, 73 years old with history of RLE; I80.9 PHLEBITIS AND THROMBOPHLEBITIS; Pt fell 2 weeks ago and is now having right leg pain. Hx of DVT in left leg. Takes baby aspirin daily , TECHNIQUE: The lower extremity deep venous system is examined utilizing real time linear array sonog dawson with graded compression, color doppler sonography, and spectral doppler. SIDE PERFORMED: Right FINDINGS: VESSELS IMAGED: Common Femoral Vein Deep Femoral Vein Greater Saphenous Vein * Femoral Vein Popliteal Vein Small Saphenous Vein * Proximal Calf Veins (* superficial vessels) Right Leg: Negative for DVT, Color Doppler imaging shows patency of the vessels. Spectral waveforms are within normal limits. IMPRESSION: No ultrasound evidence for deep venous thrombosis. [facility], , 12/27/2023 12:13 PM
== END | disposition home or self-care (01) ==
LOC: RADUSWWP 11:32
PROVIDERS: ATTEND Orthopaedic Surgery
DX: I80.01 Phlebitis and thrombophlebitis of superficial vessels of right lower extremity (principal); Z86.718 Personal history of other venous thrombosis and embolism

== ENCOUNTER → 2024-04-19 | Outpatient (CLI) | payer MEDICARE ==
--- NOTE | 2024-04-19 10:28 | BD ---
EXAMINATION TYPE: Axial Bone Density DATE OF EXAM: 04/19/2024 CLINICAL HISTORY: 73 years old Female. ICD-10 CODE: Z78.0 Asymptomatic menopausal state , Additional History: Height: 60 Weight: 172 FRAX RISK QUESTIONS: Family History (Parent hip fracture): no History of Fracture in Adulthood: yes Secondary Osteoporosis: yes 3. Menopause before 45: yes RISK FACTORS HISTORY OF: Spine Fracture: yes When: age 15 Surgery to Spine: yes When: age 29 MEDICATIONS: Thyroid Medications: yes Which medication: Levothyroxine How Lon+ years Osteoporosis Medications: no EXAM MEASUREMENTS: Bone mineral densitometry was performed using the [employer] System. Bone mineral density about the R hip (g/cm2): 0.782 Bone mineral density about the L hip (g/cm2): 0.791 T Score values are as follows: -----R Neck: -2.8 -----L Neck: -2.6 -----R Total: -1.8 -----L Total: -1.7 Z Score values are as follows: -----R Neck: -1.2 -----L Neck: -1.0 -----R Total: -0.4 -----L Total: -0.3 Bone mineral density has: Increased 1.0% since study of: 04-09-2022 Bone mineral density about the L Wrist (g/cm2): 0.531 T Score values are as follows: -----Dist. R+U: -1.8 -----Prox. R+U: -1.9 -----Radius total: -2.4 Z Score values are as follows: -----Dist. R+U: 0.4 -----Prox. R+U: 0.4 -----Radius total: -0.1 Bone mineral density has: Increased 9.8% since study of: 04-09-2022 FRAX%s: The graph provided illustrates a 26.3% chance for a major osteoporotic fx and a 8.7% chance f or the hips probability for fx in 10 years time. IMPRESSION: Osteopenia (T Score between -2.5 and -1). There is slightly increased risk of fracture and the patient may be considered for treatment. Re-Screen 2-5 years. NOTE: T-SCORE=SD OF THE YOUNG ADULT MEAN. [facility], , 04/19/2024 10:26 AM
== END | disposition home or self-care (01) ==
LOC: RADBDWWP 09:01
PROVIDERS: ATTEND Family Medicine
DX: M81.0 Age-related osteoporosis without current pathological fracture (principal); M85.89 Other specified disorders of bone density and structure, multiple sites; Z78.0 Asymptomatic menopausal state
CPT/HCPCS: 77080

== ENCOUNTER → 2024-06-29 | Outpatient (CLI) | payer MEDICARE ==
[2024-06-29 15:31] LABS: HCT 41.9 % (37.2-46.3); HGB 13.9 g/dL (12.0-15.0); MCH 30.5 pg (27.0-32.0); MCHC 33.2 g/dL (32.0-37.0); MCV 91.9 FL (80.0-97.0); NRBC Per 100 WBC 0 X 10*3/uL (0.00-0.01); Platelet Count 229 X 10*3/uL (140-440); RBC 4.56 X 10*6/uL (4.10-5.20); RDW 12.7 % (11.5-14.5); WBC 6.32 X 10*3/uL (4.50-10.00)
[2024-06-29 15:32] LABS: Basophils # (A) 0.08 X 10*3/uL (0.00-0.10); Basophils % (A) 1.3 %; Eosinophils # (A) 0.39 X 10*3/uL (0.04-0.35); Eosinophils % (A) 6.2 %; Lymphocytes # (A) 1.53 X 10*3/uL (0.90-5.00); Lymphocytes % (A) 24.2 %; Monocytes # (A) 0.42 X 10*3/uL (0.20-1.00); Monocytes % (A) 6.6 %; Neutrophils # (A) 3.87 X 10*3/uL (1.80-7.70); Neutrophils % (A) 61.2 %
[2024-06-29 16:06] LABS: ALT 20 U/L (8-44); AST 25 U/L (13-35); Albumin 3.9 g/dL (3.8-4.9); Albumin/Globulin Ratio 1.95 Ratio (1.60-3.17); Alkaline Phosphatase 53 U/L (41-126); BUN/Creat Ratio 19.86 Ratio (12.00-20.00); Blood Urea Nitrogen 13.9 mg/dL (9.0-27.0); Calcium 9.7 mg/dL (8.7-10.3); Carbon Dioxide 22.6 mmol/L (21.6-31.8); Chloride 109 mmol/L (96-109); Chol/HDL Ratio 3.46 Ratio; Glucose 100 mg/dL (70-110); LDL Cholesterol,Calculated 141.5 mg/dL (0.0-131.0); Potassium 4.6 mmol/L (3.5-5.5); Sodium 144 mmol/L (135-145); Total Bilirubin 0.5 mg/dL (0.3-1.2); Total Protein 5.9 g/dL (6.2-8.2)
== END | disposition home or self-care (01) ==
LOC: LABWHC1 08:29
PROVIDERS: ATTEND Family Medicine
DX: Z11.59 Encounter for screening for other viral diseases (principal); E78.5 Hyperlipidemia, unspecified
CPT/HCPCS: 36415; 80053; 80061; 84443; 85025; 86803

== ENCOUNTER → 2024-07-19 | Outpatient (CLI) | payer MEDICARE ==
[~2024-07-19] MED LIST changes: +SODIUM CHLORIDE 0.9% 250 ML in EMPTY BAG 1 BAG IV PRN; -SODIUM CHLORIDE 0.9% 500 ML 500 ML in EMPTY BAG 1 BAG IV PRN; -ZOLEDRONIC ACID 5 MG in SODIUM CHLORIDE 0.9% 100 ML IV NR
[2024-07-19 14:13] VITALS: BP 153/56; PULSE 64; RESP 16; TEMP 98.1
[2024-07-19] MEDS: SODIUM CHLORIDE 0.9% 500 ML 500 ML in EMPTY BAG 1 BAG IV PRN (14:14)
[2024-07-19] MEDS: ZOLEDRONIC ACID 5 MG in SODIUM CHLORIDE 0.9% 100 ML IV NR (14:15)
== END ==
LOC: PROCWHC3 13:33
PROVIDERS: ATTEND Family Medicine
DX: M81.0 Age-related osteoporosis without current pathological fracture (principal)
CPT/HCPCS: 96365; J3489